=== PATIENT | female | born 1970 | race Caucasian/White ===

== ENCOUNTER 2024-09-20 02:45 | Emergency (ER) | payer OTHER ==
[~2024-09-20] VITALS: Ht 157.5 cm; Wt 106.6 kg
[~2024-09-20 02:45] MED LIST: ALBU90OI INH; AMIT10; AMOX500 PO; AZIT250 PO; BENZ100A PO; CEPH500 PO; CIPR250 PO; CIPR500 PO; DIAZ5 PO; DIPATR PO; ERYT333ERA PO; HYDACE5 PO; IBUP600 PO; IBUP800 PO; LACT10SY PO; MAGCIT300 PO; MECL25 PO; METH10; NAPR550 PO; OXYACE5T; OXYACE5T PO; OXYACE7.5T PO; PARO10; PENVK500 PO; PROM25 PO; PROM25S PR; RXAMOX500 PO; RXHYDACE PO; RXOXYACE PO; RXPROM25 PO; WARF5; WARF5 PO
[2024-09-20 03:06] VITALS: BP 171/98
[2024-09-20] MEDS ORDERED: Diphth,Pertuss(Acell),Tet Vac 0.5 ML VIAL IM ONE (05:20)
[2024-09-20] MEDS ORDERED: Trimethoprim/Sulfamethoxazole DS Tab PO ONE (05:20)
[2024-09-20] MEDS ORDERED: SULTRIDS PO (05:20)
[2024-09-20] MEDS ORDERED: Ibuprofen 600 MG Tab PO ONE (05:20)
== END 2024-09-20 05:38 | disposition home or self-care (01) ==
LOC: ER 02:45
DX: L03.116 Cellulitis of left lower limb (principal); Z23 Encounter for immunization
CPT/HCPCS: 90471; 90715; 99283-25; A9270

== ENCOUNTER 2024-10-11 04:49 | Day surgery (SDC) | payer SELFPAY ==
[~2024-10-11 04:49] MED LIST changes: +SULTRIDS PO
[2024-10-11] MEDS ORDERED: Lidocaine HCl 4% Cream 5 GM ONE (13:21)
[2024-10-11] MEDS ORDERED: Triamcinolone Acet 0.1% Cream 15 gm ONE (14:18)
== END 2024-10-11 22:39 | disposition home or self-care (01) ==
LOC: WOUND 04:49
DX: L02.31 Cutaneous abscess of buttock (principal); L03.317 Cellulitis of buttock; I10 Essential (primary) hypertension; Z87.891 Personal history of nicotine dependence
CPT/HCPCS: A6213; A9270; G0463

== ENCOUNTER 2024-10-18 04:46 | Day surgery (SDC) | payer SELFPAY ==
[2024-10-18] MEDS ORDERED: Triamcinolone Acet 0.1% Cream 15 gm ONE (12:49)
== END 2024-10-18 23:00 | disposition home or self-care (01) ==
LOC: WOUND 04:46
DX: L02.31 Cutaneous abscess of buttock (principal); L03.317 Cellulitis of buttock; I10 Essential (primary) hypertension
CPT/HCPCS: A6196; A6213; A9270; G0463

== ENCOUNTER → 2024-10-25 | Day surgery (SDC) | payer SELFPAY | LOC: WOUND 03:47 | DX: L02.31 Cutaneous abscess of buttock (principal); L03.317 Cellulitis of buttock; I10 Essential (primary) hypertension | CPT/HCPCS: G0463 ==